=== PATIENT | female | born 2000 | race Caucasian/White ===

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

== ENCOUNTER 2019-02-08 21:37 | Emergency (ER) | payer OTHER ==
[~2019-02-08] VITALS: Ht 154.9 cm; Wt 54.4 kg
[~2019-02-08 21:37] MED LIST changes: +NORCO 5-325 TA1 EAC1 PO
[2019-02-08 22:19] LABS: ABSOLUTE BASOPHILS 0.1 thou/uL (0.0-0.2); ABSOLUTE MONOCYTES 0.6 thou/uL (0.0-1.2); ABSOLUTE NEUTROPHILS 5.5 thou/uL (1.6-8.1); EOSINOPHILS 0.3 %; HEMATOCRIT 38.2 % (37.0-47.0); HEMOGLOBIN 13.1 gm/dL (12.0-15.0); LYMPHOCYTES 23.9 %; MCH 30.8 pg (26.0-34.0); MCHC 34.2 g/dL (28.0-37.0); MCV 90.2 fL (80.0-100.0); MONOCYTES 7.7 %; MPV 8.4 fl. (7.2-11.1); NUCLEATED RBCS 0 /100WBC; PLATELET COUNT* 239 thou/uL (150-400); POLYS 67.1 %; RBC 4.23 mil/uL (4.20-5.00); RDW-CV 12.6 % (10.5-14.5); WBC 8.2 thou/uL (4.0-11.0)
[2019-02-08 22:32] LABS: CALCIUM 9.8 mg/dL (8.5-10.1); CREATININE 0.9 mg/dL (0.6-1.3); POTASSIUM 3.3 mmol/L (3.5-5.1)
[2019-02-08 22:36] LABS: ALBUMIN 4.3 g/dL (3.4-5.0); TOTAL BILIRUBIN 0.5 mg/dL (<0.1-1.0); TOTAL PROTEIN 7.8 g/dL (6.4-8.2)
[2019-02-09 00:07] LABS: URINE BILIRUBIN NEGATIVE (Negative); URINE BLOOD TRACE (Negative); URINE CLARITY SL CLOUDY; URINE COLOR YELLOW; URINE GLUCOSE-RANDOM NEGATIVE (Negative); URINE KETONES 1+ (Negative); URINE NITRITE-REFLEX NEGATIVE (Negative); URINE PROTEIN NEGATIVE (Negative)
[2019-02-09 00:13] LABS: URINE LEUKOCYTES-REFLEX 3+ (Negative)
[2019-02-09 00:14] LABS: CASTS None Seen /LPF (None Seen); SQUAMOUS >10 Many /LPF (0-3)
[2019-02-09 00:15] LABS: BACTERIA-REFLEX >30 Many /HPF (None Seen); URINE RBC 0-2 Rare /HPF (0-2)
[2019-02-09 00:16] LABS: AMORPHOUS URATES Few /LPF (None Seen)
[2019-02-09 00:24] VITALS: BP 108/60
== END 2019-02-09 00:24 | disposition home or self-care (01) ==
LOC: M.ERS 21:37
PROVIDERS: Nurse Practitioner Family
DX: R51 Headache (principal); J45.909 Unspecified asthma, uncomplicated; Z88.8 Allergy status to other drugs, medicaments and biological substances

== ENCOUNTER 2019-03-23 14:00 | Emergency (ER) | payer OTHER ==
[~2019-03-23] VITALS: Ht 154.9 cm; Wt 56.7 kg
[2019-03-23 14:29] LABS: URINE BLOOD NEGATIVE (Negative); URINE CLARITY SL CLOUDY; URINE COLOR YELLOW; URINE GLUCOSE-RANDOM NEGATIVE (Negative); URINE LEUKOCYTES-REFLEX NEGATIVE (Negative); URINE NITRITE-REFLEX NEGATIVE (Negative); URINE PROTEIN 1+ (Negative); URINE SPECIFIC GRAVITY 1.015 (1.005-1.030)
[2019-03-23 14:34] LABS: ICTOTEST (BILI CONFIRMATORY) Negative (Negative); URINE BILIRUBIN 1+ (Negative); URINE KETONES 3+ (Negative)
[2019-03-23 14:37] LABS: ABSOLUTE LYMPHOCYTES 1.5 thou/uL (0.8-5.3); ABSOLUTE MONOCYTES 0.8 thou/uL (0.0-1.2); ABSOLUTE NEUTROPHILS 4.5 thou/uL (1.6-8.1); BASOPHILS 0.4 %; EOSINOPHILS 0.1 %; HEMATOCRIT 35.7 % (37.0-47.0); HEMOGLOBIN 12.5 gm/dL (12.0-15.0); MCH 31.6 pg (26.0-34.0); MCHC 34.9 g/dL (28.0-37.0); MCV 90.4 fL (80.0-100.0); MONOCYTES 11.7 %; MPV 8.1 fl. (7.2-11.1); NUCLEATED RBCS 0 /100WBC; PLATELET COUNT* 221 thou/uL (150-400); POLYS 65.8 %; RBC 3.95 mil/uL (4.20-5.00); RDW-CV 13.1 % (10.5-14.5); WBC 6.8 thou/uL (4.0-11.0)
[2019-03-23 14:40] LABS: AMP/METHAMP Negative (Negative); BARBITURATES Negative (Negative); BENZODIAZEPINES POSITIVE (Negative); COCAINE Negative (Negative); METHADONE Negative (Negative); OPIATES Negative (Negative); PCP Negative (Negative); THC POSITIVE (Negative)
[2019-03-23 14:44] LABS: SQUAMOUS >10 Many /LPF (0-3)
[2019-03-23 14:45] LABS: CASTS None Seen /LPF (None Seen); CRYSTALS None Seen /LPF (None Seen); MUCUS >6 Heavy strn/LPF (None Seen); URINE RBC 0-2 Rare /HPF (0-2); URINE WBC-REFLEX 0-5 Rare /HPF (0-5)
[2019-03-23 14:45] LABS: CALCIUM 9.5 mg/dL (8.5-10.1); CREATININE 0.8 mg/dL (0.6-1.3); POTASSIUM 3.1 mmol/L (3.5-5.1)
[2019-03-23 14:51] LABS: ALBUMIN 4.3 g/dL (3.4-5.0); TOTAL BILIRUBIN 0.6 mg/dL (<0.1-1.0); TOTAL PROTEIN 7.9 g/dL (6.4-8.2)
[2019-03-23] MEDS ORDERED: DICLEGIS DR 101 EACH PO (16:16)
[2019-03-23] MEDS ORDERED: ZOFRAN ODT4 MG PO (16:16)
[2019-03-23] MEDS ORDERED: PRENATAL PO (16:17)
[2019-03-23 16:43] VITALS: BP 121/78
== END 2019-03-23 16:43 | disposition home or self-care (01) ==
LOC: M.ERS 14:00
PROVIDERS: Physician Assistant
DX: O21.8 Other vomiting complicating pregnancy (principal); E87.6 Hypokalemia; Z67.10 Type A blood, Rh positive; J45.909 Unspecified asthma, uncomplicated; Z88.6 Allergy status to analgesic agent; Z3A.01 Less than 8 weeks gestation of pregnancy

== ENCOUNTER 2019-04-07 06:23 | Emergency (ER) | payer OTHER ==
[~2019-04-07] VITALS: Ht 154.9 cm; Wt 49.0 kg
[~2019-04-07 06:23] MED LIST changes: +DICLEGIS DR 101 EACH PO; +PRENATAL PO
[2019-04-07 06:46] LABS: ABSOLUTE BASOPHILS 0.1 thou/uL (0.0-0.2); ABSOLUTE LYMPHOCYTES 1.7 thou/uL (0.8-5.3); ABSOLUTE MONOCYTES 0.7 thou/uL (0.0-1.2); ABSOLUTE NEUTROPHILS 6.8 thou/uL (1.6-8.1); BASOPHILS 0.8 %; EOSINOPHILS 0.2 %; HEMATOCRIT 36.3 % (37.0-47.0); HEMOGLOBIN 12.7 gm/dL (12.0-15.0); LYMPHOCYTES 18.5 %; MCH 31.5 pg (26.0-34.0); MONOCYTES 7.1 %; MPV 7.9 fl. (7.2-11.1); NUCLEATED RBCS 0 /100WBC; PLATELET COUNT* 222 thou/uL (150-400); POLYS 73.4 %; RBC 4.03 mil/uL (4.20-5.00); RDW-CV 12.5 % (10.5-14.5); WBC 9.3 thou/uL (4.0-11.0)
[2019-04-07 07:06] LABS: ALBUMIN 4.3 g/dL (3.4-5.0); CALCIUM 9.8 mg/dL (8.5-10.1); CREATININE 0.7 mg/dL (0.6-1.3); POTASSIUM 3.6 mmol/L (3.5-5.1); TOTAL BILIRUBIN 0.9 mg/dL (<0.1-1.0); TOTAL PROTEIN 8.1 g/dL (6.4-8.2)
[2019-04-07 08:18] LABS: URINE BILIRUBIN NEGATIVE (Negative); URINE BLOOD NEGATIVE (Negative); URINE CLARITY CLEAR; URINE COLOR YELLOW; URINE GLUCOSE-RANDOM NEGATIVE (Negative); URINE NITRITE-REFLEX NEGATIVE (Negative); URINE PROTEIN TRACE (Negative); URINE SPECIFIC GRAVITY 1.015 (1.005-1.030)
[2019-04-07 08:21] LABS: URINE KETONES 3+ (Negative); URINE LEUKOCYTES-REFLEX 2+ (Negative)
[2019-04-07 08:28] LABS: AMORPHOUS PHOSPHATES Many /LPF (None Seen); BACTERIA-REFLEX 1-9 Few /HPF (None Seen); CASTS None Seen /LPF (None Seen); SQUAMOUS >10 Many /LPF (0-3); URINE RBC 3-10 Few /HPF (0-2); URINE WBC-REFLEX 6-15 Few /HPF (0-5)
[2019-04-07] MEDS ORDERED: PHENERGAN 25 MG25 M1 PO (08:57)
[2019-04-07] MEDS ORDERED: PHENERGAN12.5 M2 RECTAL (08:57)
[2019-04-07 09:34] VITALS: BP 94/51
== END 2019-04-07 09:30 | disposition home or self-care (01) ==
LOC: M.ERS 06:23
PROVIDERS: Family Medicine
DX: O21.0 Mild hyperemesis gravidarum (principal); Z3A.08 8 weeks gestation of pregnancy; J45.909 Unspecified asthma, uncomplicated; Z88.5 Allergy status to narcotic agent; Z88.6 Allergy status to analgesic agent

== ENCOUNTER 2020-05-02 07:59 | Emergency (ER) | payer MEDICAID ==
[~2020-05-02] VITALS: Ht 154.9 cm; Wt 58.1 kg
[~2020-05-02 07:59] MED LIST changes: +PHENERGAN 25 MG25 M1 PO; +PHENERGAN12.5 M2 RECTAL
[2020-05-02 08:39] LABS: CALCIUM 8.4 mg/dL (8.5-10.1); CREATININE 0.9 mg/dL (0.6-1.3); POTASSIUM 3.6 mmol/L (3.5-5.1)
[2020-05-02 09:09] VITALS: BP 100/61
== END 2020-05-02 09:10 | disposition home or self-care (01) ==
LOC: M.ERS 07:59
PROVIDERS: Emergency Medicine Emergency Medical Services
DX: R51 Headache (principal); R11.2 Nausea with vomiting, unspecified; J45.909 Unspecified asthma, uncomplicated; Z88.6 Allergy status to analgesic agent

== ENCOUNTER 2021-05-31 08:57 | Emergency (ER) | payer OTHER, MEDICAID ==
[~2021-05-31] VITALS: Ht 154.9 cm; Wt 59.9 kg
[2021-05-31 10:44] LABS: URINE BILIRUBIN NEGATIVE (Negative); URINE BLOOD TRACE (Negative); URINE CLARITY CLEAR; URINE COLOR YELLOW; URINE GLUCOSE-RANDOM NEGATIVE (Negative); URINE KETONES NEGATIVE (Negative); URINE LEUKOCYTES NEGATIVE (Negative); URINE NITRITE NEGATIVE (Negative); URINE PROTEIN TRACE (Negative); URINE SPECIFIC GRAVITY 1.015 (1.005-1.030); URINE UROBILINOGEN 0.2 E.U./dl (0.2-1.0)
[2021-05-31 12:06] LABS: ABSOLUTE BASOPHILS 0.1 thou/uL (0.0-0.2); ABSOLUTE EOSINOPHILS 0.1 thou/uL (0.0-0.7); ABSOLUTE LYMPHOCYTES 1.5 thou/uL (0.8-5.3); ABSOLUTE MONOCYTES 0.5 thou/uL (0.0-1.2); BASOPHILS 0.8 %; EOSINOPHILS 0.6 %; HEMATOCRIT 38.6 % (37.0-47.0); HEMOGLOBIN 12.9 gm/dL (12.0-15.0); LYMPHOCYTES 18.3 %; MCH 30.7 pg (26.0-34.0); MCHC 33.5 g/dL (28.0-37.0); MCV 91.5 fL (80.0-100.0); MONOCYTES 6.7 %; MPV 8.2 fl. (7.2-11.1); NUCLEATED RBCS 0 /100WBC; PLATELET COUNT* 196 thou/uL (150-400); POLYS 73.6 %; RBC 4.22 mil/uL (4.20-5.00); RDW-CV 12.3 % (10.5-14.5); WBC 8.2 thou/uL (4.0-11.0)
[2021-05-31 12:13] LABS: CALCIUM 8.7 mg/dL (8.5-10.1); CREATININE 0.8 mg/dL (0.6-1.3); POTASSIUM 4.3 mmol/L (3.5-5.1)
[2021-05-31 12:17] LABS: ALBUMIN 4.1 g/dL (3.4-5.0); TOTAL BILIRUBIN 0.4 mg/dL (<0.1-1.0); TOTAL PROTEIN 7.2 g/dL (6.4-8.2)
--- NOTE | 2021-05-31 14:24 | EKG ---
[place] [address] ELECTROCARDIOGRAM REPORT Name: APRYL SZYMANSKI Room: [facility]#: [id number] Admission: 05/31/21 Attend Phys: Discharge: Date of : 89 Date of Service: 05/31/21 1212 Report #: [id number] THIS REPORT FOR: //name// [facility] ED Test Date: 2021-05-31 Test Time: 12:12:40 Pat Name: APRYL SZYMANSKI Department: Room: Gender: F Bpo Specialist: : 2000 Requested By: Maricruz Markham Order Number: [id number] MD: Howie Estrella Measurements Intervals [place] Rate: 66 P: 268 PA: 128 QRS: 77 QRSD: 76 T: 49 QT: 395 QTc: 414 Interpretive Statements Sinus or ectopic atrial rhythm Borderline T wave abnormalities Compared to ECG 09/19/2017 13:24:50 T-wave abnormality still present Electronically Signed On 05-31-2021 14:23:57 CDT by Howie Estrella [email or web address] <ELECTRONICALLY SIGNED> By: Howie Estrella MD, [facility] 05/31/21 1423 1212 1212 Howie Estrella MD, [facility] /EPI
[2021-05-31] MEDS ORDERED: NORCO5 PO (16:58)
[2021-05-31] MEDS ORDERED: ZOFRAN ODT4 MG PO (17:08)
[2021-05-31 17:13] VITALS: BP 96/50
== END 2021-05-31 17:16 | disposition home or self-care (01) ==
LOC: M.ERS 08:57
PROVIDERS: Emergency Medicine; Nurse Practitioner Family
DX: R22.2 Localized swelling, mass and lump, trunk (principal); R10.32 Left lower quadrant pain; R11.10 Vomiting, unspecified; J45.909 Unspecified asthma, uncomplicated; Z98.890 Other specified postprocedural states; Z88.6 Allergy status to analgesic agent; Z88.8 Allergy status to other drugs, medicaments and biological substances

== ENCOUNTER 2021-06-16 08:51 | Emergency (ER) | payer OTHER, MEDICAID ==
[~2021-06-16] VITALS: Ht 154.9 cm; Wt 61.2 kg
[~2021-06-16 08:51] MED LIST changes: +NORCO5 PO
[2021-06-16 09:02] VITALS: BP 112/54
== END 2021-06-16 11:09 | disposition home or self-care (01) ==
LOC: M.ERS 08:51
DX: S62.336A Displaced fracture of neck of fifth metacarpal bone, right hand, initial encounter for closed fracture (principal); J45.909 Unspecified asthma, uncomplicated; Z88.6 Allergy status to analgesic agent; V09.9XXA Pedestrian injured in unspecified transport accident, initial encounter; Y93.89 Activity, other specified; Y92.89 Other specified places as the place of occurrence of the external cause; Y99.8 Other external cause status

== ENCOUNTER → 2021-08-02 | Outpatient (CLI) | payer OTHER, MEDICAID | LOC: M.LAB 14:23 | PROVIDERS: ATTEND Internal Medicine Gastroenterology | DX: Z01.812 Encounter for preprocedural laboratory examination (principal); Z20.822 Contact with and (suspected) exposure to COVID-19 ==

== ENCOUNTER 2021-08-23 19:47 | Emergency (ER) | payer OTHER, MEDICAID ==
[~2021-08-23] VITALS: Ht 154.9 cm; Wt 59.9 kg
[2021-08-23] MEDS ORDERED: AMITRIPTYLINE H25 M3 PO (20:03)
[2021-08-23] MEDS ORDERED: COQ-1030 MG PO (20:03)
[2021-08-23 20:08] LABS: URINE BLOOD TRACE (Negative); URINE CLARITY CLEAR; URINE COLOR YELLOW; URINE GLUCOSE-RANDOM NEGATIVE (Negative); URINE KETONES 2+ (Negative); URINE LEUKOCYTES NEGATIVE (Negative); URINE NITRITE NEGATIVE (Negative); URINE PROTEIN TRACE (Negative); URINE SPECIFIC GRAVITY >= 1.030 (1.005-1.030)
[2021-08-23 20:13] LABS: ICTOTEST (BILI CONFIRMATORY) Negative (Negative); URINE BILIRUBIN 1+ (Negative)
[2021-08-23 20:32] LABS: ABSOLUTE LYMPHOCYTES 1.1 thou/uL (0.8-5.3); ABSOLUTE MONOCYTES 0.6 thou/uL (0.0-1.2); BASOPHILS 0.4 %; EOSINOPHILS 0.5 %; HEMATOCRIT 38.2 % (37.0-47.0); LYMPHOCYTES 16.7 %; MCH 30.9 pg (26.0-34.0); MCHC 33.9 g/dL (28.0-37.0); MONOCYTES 9.1 %; MPV 8.1 fl. (7.2-11.1); NUCLEATED RBCS 0 /100WBC; PLATELET COUNT* 183 thou/uL (150-400); POLYS 73.3 %; RDW-CV 12.5 % (10.5-14.5); WBC 6.8 thou/uL (4.0-11.0)
[2021-08-23 21:01] LABS: CALCIUM 8.5 mg/dL (8.5-10.1); CREATININE 0.8 mg/dL (0.6-1.3); POTASSIUM 3.2 mmol/L (3.5-5.1)
[2021-08-23 21:05] LABS: ALBUMIN 3.5 g/dL (3.4-5.0); MAGNESIUM 1.8 mg/dL (1.8-2.4); TOTAL BILIRUBIN 0.4 mg/dL (<0.1-1.0); TOTAL PROTEIN 7.1 g/dL (6.4-8.2)
[2021-08-23] MEDS ORDERED: ZOFRAN ODT4 MG PO (21:28)
[2021-08-23 21:39] VITALS: BP 108/70
== END 2021-08-23 21:40 | disposition home or self-care (01) ==
LOC: M.ERS 19:47
PROVIDERS: Physician Assistant
DX: R11.2 Nausea with vomiting, unspecified (principal); R10.11 Right upper quadrant pain; R10.12 Left upper quadrant pain; J45.909 Unspecified asthma, uncomplicated; Z90.49 Acquired absence of other specified parts of digestive tract; Z98.890 Other specified postprocedural states; Z79.899 Other long term (current) drug therapy; Z88.6 Allergy status to analgesic agent; Z88.8 Allergy status to other drugs, medicaments and biological substances

== ENCOUNTER → 2021-08-30 | Outpatient (CLI) | payer OTHER, MEDICAID ==
[~2021-08-30] MED LIST changes: +AMITRIPTYLINE H25 M3 PO; +COQ-1030 MG PO
== END ==
LOC: M.NUC 07:11
PROVIDERS: ATTEND Internal Medicine Gastroenterology
DX: R11.2 Nausea with vomiting, unspecified (principal); R10.9 Unspecified abdominal pain